=== PATIENT | male | born 1975 | race Caucasian/White ===

== ENCOUNTER 2019-07-21 21:16 | Emergency (ER) | payer SELFPAY ==
[~2019-07-21] VITALS: Ht 190.5 cm; Wt 90.9 kg
[2019-07-21 21:24] VITALS: BP 138/95; TEMP 97.9
[2019-07-21] MEDS ORDERED: SEPTRA DS 8001 TAB PO (22:52)
[2019-07-22 00:09] VITALS: PULSE 62
== END 2019-07-22 00:09 | disposition home or self-care (01) ==
LOC: COL.ER 21:16
DX: S71.111A Laceration without foreign body, right thigh, initial encounter (principal); F17.210 Nicotine dependence, cigarettes, uncomplicated; Z88.1 Allergy status to other antibiotic agents; W26.8XXA Contact with other sharp object(s), not elsewhere classified, initial encounter; Y92.009 Unspecified place in unspecified non-institutional (private) residence as the place of occurrence of the external cause